=== PATIENT | male | born 1955 | race Caucasian/White ===

== ENCOUNTER → 2017-07-19 | Outpatient (CLI) | payer OTHER ==
[2017-07-19 08:45] LABS: BASO % 0.6 %; BASO ABS # 0.04 K/uL (0-0.2); EOS % 4.5 %; EOS ABS # 0.31 K/uL (0-0.5); HEMOGLOBIN 15.6 g/dL (14.0-18.0); IG# 0.01 K/uL (0.00-0.02); LYMPH % 31.4 %; LYMPH ABS # 2.17 K/uL (1.2-3.4); MEAN CORPUSCULAR HEMOGLOBIN 31.9 pg (25-34); MEAN CORPUSCULAR HGB CONC 34.7 g/dl (32-36); MEAN PLATELET VOLUME 11.8 fL (7.4-10.4); MONO % 9.3 %; MONO ABS # 0.64 K/uL (0.11-0.59); NEUT % 54.1 %; NEUT ABS # 3.74 K/uL (1.4-6.5); PLATELET COUNT 168 K/uL (130-400); RED CELL DISTRIBUTION WIDTH CV 13.7 % (11.5-14.5); RED CELL DISTRIBUTION WIDTH SD 46.1 fL (36.4-46.3); WHITE BLOOD COUNT 6.91 K/uL (4.8-10.8)
[2017-07-19 09:19] LABS: ALT/SGPT 35 U/L (12-78); BLOOD UREA NITROGEN 16 mg/dl (7-18); CALCIUM 8.9 mg/dl (8.5-10.1); CARBON DIOXIDE 27 mmol/L (21-32); CREATININE 0.82 mg/dl (0.60-1.40); GLUCOSE 128 mg/dl (70-99); POTASSIUM 4.2 mmol/L (3.5-5.1); SODIUM 139 mmol/L (136-145)
[2017-07-19 09:22] LABS: ALKALINE PHOSPHATASE 61 U/L (45-117); AST/SGOT 17 U/L (15-37); TOTAL PROTEIN 7.6 gm/dl (6.4-8.2)
== END | disposition home or self-care (01) ==
LOC: C.LAB 08:13
PROVIDERS: ATTEND Internal Medicine
DX: J61 Pneumoconiosis due to asbestos and other mineral fibers (principal)

== ENCOUNTER → 2017-07-31 | Outpatient (CLI) | payer OTHER ==
[~2017-07-31] MED LIST: OPTIRAY 320 IV PRN
--- NOTE | 2017-07-31 09:49 | DIAGNOSTIC IMAGING REPORT ---
CT SCAN OF THE CHEST WITH IV CONTRAST CLINICAL HISTORY: Dyspnea. Pulmonary asbestosis. COMPARISON STUDY: No priors. TECHNIQUE: Following the IV administration of 92 cc of Optiray 320, CT scan of the thorax was performed from the thoracic inlet to the upper abdomen. Images are reviewed in the axial, sagittal, and coronal planes. IV contrast was administered without complication. A dose lowering technique was utilized adhering to the principles of ALARA. CT DOSE: 608.73 mGycm FINDINGS: Thyroid: Imaged portions of the thyroid gland are normal in size and attenuation. Thoracic aorta: The thoracic aorta is normal in caliber and demonstrates standard 3-vessel arch anatomy. No dissection is seen. Pulmonary vasculature: The pulmonary trunk is dilated, measuring 3.4 cm in diameter. This suggests pulmonary artery hypertension. There are no filling defects identified in the central pulmonary vessels to indicate pulmonary embolus. Note that this examination was not protocoled for evaluation of the pulmonary arteries. Heart: The heart is top normal in size and without pericardial effusion. There are coronary artery calcifications. Lungs and pleural spaces: Fat-containing Bochdalek hernias are present at both lung bases. There is no airspace consolidation or pleural effusion. No calcified pleural plaques are identified. The trachea and central airways are clear. Mediastinum: There is no mediastinal lymphadenopathy. Radha: Clear. Axillae: There is no axillary lymphadenopathy. Upper abdomen: There is evidence of hepatic steatosis. Partially visualized upper abdominal viscera is otherwise within normal limits. Skeletal structures: No lytic or blastic bony lesions are seen. IMPRESSION: 1. The lungs are clear. 2. Hepatic steatosis. Electronically signed by: Pradeep Brannon M.D. 07/31/2017 9:48 AM Dictated Date/Time: 07/31/2017 9:42 AM
--- NOTE | 2017-07-31 10:12 | DIAGNOSTIC IMAGING REPORT ---
LEFT THUMB 3 VIEWS; LEFT HAND 3 VIEWS CLINICAL HISTORY: Trigger finger. Left hand pain. FINDINGS: 3 views of the left hand with 3 additional views of the left thumb are obtained. No prior studies are available for comparison at the time of dictation. The skeletal structures are well mineralized for age. No fracture is identified in the left hand. There is mild osteoarthritic change at the first carpometacarpal joint. Moderate arthritic change with bony sclerosis and mild overgrowth is seen at the first metacarpophalangeal joint. Minimal osteoarthritic change is seen involving the interphalangeal joints, distal greater than proximal. No erosive disease is identified. The overlying soft tissues are normal in appearance. IMPRESSION: 1. No acute bony abnormality is seen involving the left hand or the left thumb. 2. Mild arthritic change as above, greatest at the first metacarpophalangeal joint. Electronically signed by: Pradeep Brannon M.D. 07/31/2017 10:10 AM Dictated Date/Time: 07/31/2017 10:08 AM
--- NOTE | 2017-07-31 10:17 | DIAGNOSTIC IMAGING REPORT ---
R FOREARM 2 VIEWS ROUTINE CLINICAL HISTORY: M79.603 Arm [id number] COMPARISON: None. DISCUSSION: There are vascular calcifications present. No fractures or dislocations are visualized. There are corticated ossicles at the level of the medial epicondyles of the distal humerus. IMPRESSION: 1. No acute fractures 2. No destructive lesions are visualized Electronically signed by: Kong Oliver M.D. 07/31/2017 10:16 AM Dictated Date/Time: 07/31/2017 10:15 AM
--- NOTE | 2017-07-31 10:20 | DIAGNOSTIC IMAGING REPORT ---
RIGHT WRIST 4 VIEWS CLINICAL HISTORY: Right wrist pain. FINDINGS: 4 views of the right wrist are obtained. No prior studies are available for comparison at the time of dictation. The skeletal structures are well mineralized for age. No fracture is identified. Moderate to advanced degenerative narrowing is seen at the radiocarpal articulation with mild bony sclerosis. There is widening between the scaphoid and the lunate which measures up to 4 mm. There is no significant proximal migration of the capitate. Mild arthritic change is seen at the first carpometacarpal and metacarpophalangeal joints. No erosive disease is suggested. Atherosclerotic calcification is seen in the regional arteries. Overlying soft tissues are otherwise normal in appearance. IMPRESSION: 1. No fracture is identified. 2. There is widening between the scaphoid and the lunate suggesting ligamentous injury. 3. Arthritic change as above. Electronically signed by: Pradeep Brannon M.D. 07/31/2017 10:19 AM Dictated Date/Time: 07/31/2017 10:17 AM
== END | disposition home or self-care (01) ==
LOC: C.CTS 09:12
PROVIDERS: ATTEND Internal Medicine
DX: M79.643 Pain in unspecified hand (principal); M65.30 Trigger finger, unspecified finger; M25.539 Pain in unspecified wrist; K76.0 Fatty (change of) liver, not elsewhere classified; R93.7 Abnormal findings on diagnostic imaging of other parts of musculoskeletal system

== ENCOUNTER → 2018-01-15 | Outpatient (CLI) | payer OTHER ==
--- NOTE | 2018-01-16 05:26 | PAP/PSG TECHNICIAN REPORT ---
[facility] Team Psychologist Polysomnogram Report Study name: None Report date: 01/16/2018 Study date: 01/15/2018 Referring Physician: RADHA TEIXEIRA M.D. Name: JOHN JULIAN Interpreting Physician: Ephraim Hayes D.O. Date of : 1955 Team Psychologist: JANKI Clinton. Sex: Male Age: 62 StudyType: PSG Weight: 228 lbs Height: 62 years, Height 6' 0" Neck Circum: 17in. BMI: 30.92 Medications: Pro Air HFA 108mcg/act Patient History Study started on room air with no ETCO2 monitoring in room #6. 62 yr old male here tonight for a diagnostic psg. He complains of depression and EDS. He wakes up in the middle of the night but he does not know why. He has trouble taking in a deep breath. He is a former smoker and he has had exposure to asbestos .His ESS=9/24 Neck circ=17 inches. Parameters Monitored NPSG: E1-M2, E2-M1, Fp1-M2, Fp2-M1, F3-M2, F4-M2, F4-M1, C3-M2, C4-M2, C4-M1, O1-M2, O2-M2, O2-M1, T3-M2, T4-M1, P3-M2, P4-M1, CHIN1, CHIN2, HR, EKG, Legs, PFLOW, SNOR, FLOW, CFLOW, Tidal Volume, THOR, ABDO, SpO2, PLTH, CPRESS, ETCO2 Wave, ETCO2, pH Sleep Architecture Sleep Stages Time at Lights Off 9:17:04 PM STAGES Time (min.) TST (%) Time at Lights On 5:16:34 AM Wake 101.5 -- Total Recording Time (TRT) 479.50 min. N1 31.0 8 Total Sleep Period (TSP) 433.5 min. N2 266.0 70 Total Sleep Time (TST) 378.0min. N3 36.5 10 Awake Time 101.5 min. REM 44.5 12 Wake after Sleep Onset 55.5 min. Sleep Efficiency (SE) 79 % Sleep Onset Latency (TRACEY) 46.0 min. Number of Stage 1 Shifts None Awakenings 19 Stage Changes 106 Number of REM periods 3 REM 44.5 12 REM Latency 357.0 min. NREM 333.5 88 Body Position Analysis Supine Right Left Side Prone Vertical Total Sleep Time (min.) 42.2 166.0 212.0 378.00 0.0 0.0 Total Sleep Time (%) 0% 44% 56% 100 0% N/A% Total Sleep Time REM (min.) 0.0 44.5 0.0 None 0.0 0.0 Total Sleep Time NREM (min.) 0.0 121.5 212.0 None 0.0 0.0 Intermittent Wake (min.) 42.2 38.3 21.0 None 0.0 0.0 Total Sleep Period (%) 1% None None None None None Arousals Myoclonus (PLM) * Events Count Index Events Count Index Spontaneous 8 1 Events Awake (PLMW) 102 60.3 Respiratory 0 0.0 Events Asleep w/ Arousal (PLMA) 50 7.9 PLM 50 8 Events Asleep w/o Arousal (PLMS) 99 15.7 Snoring 1 0 Total Asleep 149 23.7 Total 59 9 Total 251 31 Respiratory Analysis * CA OA MA CH H RERA Total Count 0 1 0 0 0 0 1 Index 0.0 0.2 0.0 0 0.0 0 0.2 Mean Duration 0.0 15.7 0.0 0.00 0.0 0.0 15.7 Longest Duration 0.0 15.7 0.0 0.00 0.0 0.0 15.7 Respiratory Event Summary Total Supine ~Supine Right Left Prone REM NREM Apneas Count 1 N/A 1 1 0 N/A 1 0 Index 0.2 N/A 0 0.4 0.0 N/A 1 0 Hypopneas (4% Desat) Count 0 N/A 0 0 0 N/A 0 0 Index 0.0 N/A 0 0.0 0.0 N/A 0.0 0.0 Apneas & All Hypopneas Count 1 N/A 1 1 0 N/A 1 0 Index 0.2 N/A 0 0 0 N/A 1.3 0.0 Respiratory Events (Tank Wagon Driver+All Hyp+RERA) Count 1 N/A 1 1 0 N/A 1 0 Index 0.2 N/A 0 0.4 0.0 N/A 1.3 0.0 Respiratory Related Arousal Count 0 N/A 0 0 0 N/A 0 0 Index 0.0 N/A 0 0 0 N/A 0 0 Snoring Analysis Supine Right Left Prone REM NREM Total Snore duration 1.1 min Snores count N/A 6 29 N/A 2 33 35 Snore mean duration 1.9 Sec Snores index N/A 2 8 N/A 2.7 5.9 5.6 TST with snoring (%) 0.3% Desaturation Event Summary: Minimum %SpO2 Event Count Mean/Min/Max Duration(sec.) Desaturation Index % Time In Bed > 90 10 37.8 / 9.0 / 60.0 1.3 95.1 86 - 90 1 20.0 / 20.0 / 20.0 2.6 4.9 81 - 85 0 N/A 0.0 0.0 76 - 80 0 N/A 0.0 0.0 71 - 75 0 N/A 0.0 0.0 66 - 70 0 N/A 0.0 0.0 61 - 65 0 N/A 0.0 0.0 56 - 60 0 N/A 0.0 0.0 51 - 55 0 N/A 0.0 0.0 < 50 0 N/A 0.0 0.0 Total REM NREM Awake <50% 0.0 min. 0.0 min. 0.0 min. 0.0 min. 51 - 60% 0.0 min. 0.0 min. 0.0 min. 0.0 min. 61 - 70% 0.0 min. 0.0 min. 0.0 min. 0.0 min. 71 - 80% 0.0 min. 0.0 min. 0.0 min. 0.0 min. 81 - 90% 23.1 min. 0.0 min. 6.5 min. 16.6 min. 91 - 100% 448.9 min. 44.5 min. 322.6 min. 81.7 min. Average 93 94 93 93 Minimum SpO2 86 91 89 86 Desaturation Event Index 1.4 1.3 0.4 4.7 # Desat. Events below 89% 2 N/A N/A 2 Time(%) with Saturation below 89% 0.3 0.0 0.0 0.3 Time(min.) with Saturation below 89% 1.4 0.0 0.0 1.4 Heart Rate Analysis Min (bpm) Max (bpm) Average (bpm) Awake 48 265 62 NREM 47 127 53 REM 48 64 53 Overall 47 127 53 Supplemental O2 Values Minimum O2 level: None Value Start Time End Time Team Psychologist Comments Mr. Julian slept in the right, left and supine positions. No cardiac arrhythmia noted. PLM's were noted. No bruxism noted. Snoring was noted and scored as a 1 on a scale of 1 through 5. (0=no snoring, 5=snoring loud enough to be heard through a closed door or down the shah way) He did not use the restroom during the night. He stated that he slept about the same as usual. The final report will be interpreted and signed by a sleep physician. The completed physician report will then be placed in the patient medical record. Therapy (cm H2O) 0 TIB (min.) 479.5 TST (min.) 378.0 Sleep Onset (min.) 46.0 REM Onset From Sleep (min.) 357.0 Sleep Efficiency % 79 Wakefulness (%) 21 Wakefulness (min.) 101.5 NREM 1 (%) 8 NREM 1 (min.) 31.0 NREM 2 (%) 70 NREM 2 (min.) 266.0 NREM 3 (%) 10 NREM 3 (min.) 36.5 REM (%) 12 REM (min.) 44.5 # Arousals 59 Arousal Index 9 # Snore 35 Snore Index 5.6 AHI 0.2 AHI Supine N/A AHI Non-Supine 0 NREM AHI 0.0 REM AHI 1.3 RDI 0.2 # Obstructive Apnea 1 # Central Apnea 0 # Mixed Apnea 0 # Hypopneas 0 RERAs 0 Total Respiratory Events 2 Time Below SpO2 89% (min.) 0.0 Mean NREM SpO2 (%) 93 Mean REM SpO2 (%) 94 Mean Sleep SpO2 (%) 93 Min NREM SpO2 (%) 89 Min REM SpO2 (%) 91 Position Supine (min.) 42.2 Position Non-supine (min.) 378.0 LM Index Sleep 23.7 LM Index NREM 22.1 LM Index REM 35.1 Mean Heart Rate (bpm) 53 Min Heart Rate (bpm) 47
--- NOTE | 2018-01-18 15:23 | POLYSOMNOGRAPH REPORT ---
CLINICAL DATA: The patient is a 62-year-old male with a history of excessive daytime somnolence. He also has disturbed night sleep. There is a history of depression. His Pelham sleepiness scale score is 9. SLEEP ARCHITECTURE: The total sleep period was 433.5 minutes. The total sleep time was 378 minutes. The sleep efficiency was 79%, which would be moderately decreased. The sleep latency was prolonged to 46 minutes. Wake after sleep onset was increased to 55.5 minutes. The REM latency was severely prolonged to 357 minutes. There was only 1 REM period during the night. Sleep consisted of stage N1 of 8%, stage N2 of 70%, stage N3 of 10%, stage REM 12%. AROUSAL DATA: The patient had a total of 59 arousals including 8 spontaneous arousals, 50 PLM arousals, and 1 snoring arousal. The arousal index was 9. PLM DATA: The patient had a total of 149 periodic limb movements for a PLM index of 23.7. There were 50 arousals associated with limb movements for a PLM arousal index of 7.9. EKG: The cardiac rhythm was normal sinus. The minimum heart rate was 47 beats per minute. The average heart rate was 53 beats per minute. No arrhythmias noted. RESPIRATORY DATA: The patient had a total of 1 respiratory event. This was an obstructive apnea. The duration of this apnea was 15.7 seconds. The apnea hypopnea index was only 0.2 events per hour. This would reflect no significant sleep apnea. OXIMETRY DATA: The average saturation for the night was 93%. The minimum saturation was 86%. There was a total of only 1.4 minutes with saturations less than 89%. These occurred at the onset of the study while the patient was still awake and likely was due to motion artifact. BRIM AND CROWN PRESSER COMMENTS: Mr. Julian slept in the right, left, and supine positions. No arrhythmia noted. PLMs were noted. No bruxism noted. Snoring was noted and scored as a 1 on a scale of 1 through 5. He did not use the restroom during the night. He stated that he slept about the same as usual. IMPRESSION: 1. No evidence of sleep apnea. 2. Periodic limb movement disorder. COMMENTS: The patient had no sleep apnea as noted. His sleep efficiency was modestly decreased. Sleep architecture was abnormal with a decrease in the amount of REM sleep. It is unknown what medications the patient is taking if any. He has a modest number of limb movements with some arousals associated with them. Clinical correlation is required to determine if he may have true restless legs that may require pharmacologic therapy. RECOMMENDATIONS: 1. It is advised that the patient be made aware of the appropriate principles of sleep hygiene, which would include having a regular sleep-wake schedule and allowing 7.5-8 hours of sleep time per night. 2. Clinical correlation is required to evaluate as to whether or not he has a significant limb movement disorder. 3. The patient should follow up with Dr. Le who referred him for this evaluation.
== END | disposition home or self-care (01) ==
LOC: C.NEUR 20:00
PROVIDERS: ATTEND Internal Medicine
DX: G47.61 Periodic limb movement disorder (principal)